=== PATIENT | female | born 1975 | race Caucasian/White ===

== ENCOUNTER 2020-05-21 11:08 | Emergency (ER) | payer OTHER, SELFPAY ==
--- NOTE | 2020-05-21 11:16 | ED.GENADULT ---
HPI - General Adult General Chief complaint: Skin/Abscess/Foreign Body Stated complaint: Bite on arm Time Seen by Provider: 05/21/20 11:16 Source: patient Mode of arrival: ambulatory Limitations: no limitations History of Present Illness HPI narrative: 44-year-old female patient presents to the [facility] with complaints of a bite and some redness on her right arm. Patient states that she noticed the area yesterday morning. Patient states she felt like her arm was on fire. Patient states she had a little bit of itching yesterday but that today feels more like an aching pain. Patient states that the redness to her arm has gotten increasingly bigger. Denies any fevers, body aches or chills. Denies any chest pain or shortness of breath. Patient states she did take some Benadryl for her symptoms. Related Data Allergies Allergy/AdvReac Type Severity Reaction Status Date / Time Sulfa (Sulfonamide Allergy Blister Verified 05/21/20 11:34 Antibiotics) Review of Systems Review of Systems: Narrative: CONSTITUTIONAL: Denies fever, chills, or sweats. EYES: Denies visual changes, redness, or discharge. ENT: Denies rhinorrhea, congestion, sore throat, or otalgia. CARDIOVASCULAR: Denies chest pain, palpitations, or edema. RESPIRATORY: Denies cough or dyspnea. GASTROINTESTINAL: Denies abdominal pain, nausea, vomiting, or diarrhea. GENITOURINARY: Denies dysuria or hematuria. SKIN: Denies rash or itching. Positive redness, swelling and insect bite to right arm since yesterday MUSCULOSKELETAL: Denies back pain, joint pain, or myalgia. NEUROLOGIC: Denies headache, numbness, or weakness. PSYCHIATRIC: Denies anxiety or depression. PMFSH Comments At the time of my signature I agree with nursing past medical history, surgical, social, and family history. There is no relevant family history pertinent to the presenting complaint. Exam Narrative: Exam Narrative: GENERAL: Well-appearing, well-nourished, and in no acute distress. HEAD: Normocephalic, atraumatic. EYES: PERRLA and EOMI. ENT: Nares clear, no rhinorrhea or epistaxis. Mucous membranes moist. NECK: Supple. No lymphadenopathy CHEST: Clear to auscultation. No respiratory distress. HEART: Regular rate and rhythm. No murmur heard. Normal peripheral pulses. ABDOMEN: Soft, nontender, nondistended, normal active bowel sounds. EXTREMITIES: Normal range of motion. No edema. SKIN: Warm, dry, no rash. Patient has a large reddened area to the posterior upper arm on the right side. The reddened area measuring approximately 18 cm in length and 11 cm wide. There is several little raised papules in various areas with some punctate donohue. It is warm to the touch and slightly swollen. No open wounds or drainage. No obvious abscess noted. NEURO: No focal deficits. Alert and oriented x3. Course Vital Signs Vital signs: Vital Signs Temperature 36.6 C 05/21/20 11:17 Pulse Rate 93 05/21/20 11:17 Respiratory Rate 16 05/21/20 11:17 Blood Pressure 134/90 05/21/20 11:17 Pulse Oximetry 98 05/21/20 11:17 Temperature 36.6 C 05/21/20 11:17 Pulse Rate 93 05/21/20 11:17 Respiratory Rate 16 05/21/20 11:17 Blood Pressure 134/90 05/21/20 11:17 Pulse Oximetry 98 05/21/20 11:17 Vital signs reviewed. The patient has been informed that they may have pre-hypertension or Hypertension based on a BP reading in the department. I recommend that the patient call the primary care provider listed on their discharge instructions or a physician of their choice this week to arrange follow up for further evaluation of possible pre-hypertension or Hypertension Medical Decision Making Differential Diagnosis Differential Diagnosis: Differential diagnosis: Abscess, cellulitis, hidradenitis, laceration, puncture wound. Notify patient we will go ahead and put her on some antibiotics and treat her for cellulitis infection. Discussed with her she can also use a warm compress to the area to help
[2020-05-21 11:17] VITALS: BP 134/90; PULSE 93; RESP 16; TEMP 36.6; O2SAT 98
== END 2020-05-21 11:40 | disposition home or self-care (01) ==
PROVIDERS: Emergency Provider Nurse Practitioner Family; PCP Internal Medicine
DX: L03.113 Cellulitis of right upper limb (principal)
CPT/HCPCS: 99213; G0463

== ENCOUNTER 2020-09-03 14:57 | Emergency (ER) | payer OTHER, SELFPAY ==
[2020-09-03 15:04] VITALS: BP 147/106; PULSE 106; RESP 20; TEMP 37.2; O2SAT 97
--- NOTE | 2020-09-03 15:20 | ED.SKABFB ---
HPI - Skin/Abscess/Foreign Bdy General Chief complaint: Skin/Abscess/Foreign Body Stated complaint: Cellulitis Time Seen by Provider: 09/03/20 15:20 Source: patient Mode of arrival: ambulatory Limitations: no limitations History of Present Illness HPI narrative: Alvarado Hartman is a 45 yo female with a PMH of high trigylycerides who comes here with a warm 2 x 3 area on lower left medial forearm and small area at elbow that is mildly raised warm to touch there is also very pruritic. Is concerned it is cellulitis like she had a couple of years ago Patient is allergic to Bactrim Related Data Home Medications Medication Instructions Recorded Confirmed omeprazole 20 mg PO BID 09/03/20 09/03/20 Allergies Allergy/AdvReac Type Severity Reaction Status Date / Time Sulfa (Sulfonamide Allergy Mild Blister Verified 09/03/20 15:18 Antibiotics) Review of Systems Review of Systems: Narrative: CONSTITUTIONAL: Denies fever, chills, sweats. EYES: Denies visual changes, redness, discharge. ENT: Denies rhinorrhea, congestion, sore throat, otalgia. CARDIOVASCULAR: Denies chest pain, palpitations, edema. RESPIRATORY: Denies dyspnea, wheezing, cough GASTROINTESTINAL: Denies abdominal pain, nausea, vomiting, diarrhea. GENITOURINARY: Denies dysuria, hematuria, abnormal discharge SKIN: Denies rash or itching. 2 small areas on left arm one in forearm one on elbow but no raised red itchy mildly warm NEUROLOGIC: Denies numbness, or focal weakness. PSYCHIATRIC: Denies anxiety or depression. [facility] Past Medical History Medical History Elevated cholesterol with elevated triglycerides Family History Family History Other Diabetes mellitus Social History Social History (Updated 09/03/20 @ 15:32 by Rosie Lock CNP) Smoking packs per day: 0.5 Smoking cigarettes per day: 10.0 Smoking status: Current every day smoker Tobacco type: cigarettes Alcohol intake: current Comments At time of signature, I agree with nursing past medical, surgical, social and family history. There is no relevant family history pertinent to the presenting complaint. Blood pressure is again elevated and patient says that has happened in the past but has not followed up with her doctor Exam Narrative: Exam Narrative: GENERAL: This is a well-nourished, well-developed patient, in mild distress. HEAD: normocephalic, atraumatic. EYES: Sclera clear/white. Vision is grossly intact. EARS: External ears normal. Hearing grossly intact. NOSE: External nose normal without nasal discharge, nares without redness, no rhinorrhea. THROAT: Mucous membranes moist, NECK: Neck supple, CARDIOVASCULAR: Regular rate and rhythm without murmurs, gallops, or rubs. RESPIRATORY: Clear to auscultation. Breath sounds equal bilaterally. No wheezes, rales, or rhonchi. GASTROINTESTINAL: Abdomen soft, SKIN: warm, intact with 2 lesions to left forearm 3 x 2 on forearm and elbow, mildly raised. mild warmth;. Pruritic NEURO: awake, alert, and oriented to person, place and time. There were no obvious focal neurologic abnormalities. Steady gait EXTREMITIES: Normal range of motion. BACK: Nontender without deformity Course Course Emergency Course: Patient states the last couple days he has developed these red spots that have been much larger in 1 day-concerned that his cellulitis Patient started on Keflex and Benadryl discussed with patient follow-up with primary care physician for both high blood pressure and acknowledged high triglycerides Vital Signs Vital signs: Vital Signs Temperature 98.9 F 09/03/20 15:04 Pulse Rate 106 H 09/03/20 15:04 Respiratory Rate 20 09/03/20 15:04 Blood Pressure 147/106 H 09/03/20 15:04 Pulse Oximetry 97 09/03/20 15:04 Temperature 98.9 F 09/03/20 15:04 Pulse Rate 106 H 09/03/20 15:04 Respiratory Rate 20 12
[2020-09-03 15:45] VITALS: BP 144/100
== END 2020-09-03 15:45 | disposition home or self-care (01) ==
PROVIDERS: Emergency Provider Nurse Practitioner; PCP Internal Medicine
DX: L03.114 Cellulitis of left upper limb (principal); F17.210 Nicotine dependence, cigarettes, uncomplicated; E78.2 Mixed hyperlipidemia
CPT/HCPCS: 99213; G0463

== ENCOUNTER 2022-02-02 14:42 | Emergency (ER) | payer OTHER, SELFPAY ==
[2022-02-02 15:00] VITALS: BP 122/88; PULSE 95; RESP 20; TEMP 36.8; O2SAT 97
--- NOTE | 2022-02-02 15:33 | ED.URI ---
HPI - URI/Sore Throat General Chief Complaint: Upper Respiratory Infection Stated Complaint: Chest Congestion/Cough Time Seen by Provider: 02/02/22 15:34 Source: patient Mode of arrival: ambulatory Limitations: no limitations History of Present Illness HPI Narrative: 46 year old female who presents to [facility] care with cough, nasal drainage some episodes of wheezing since . Patient reports that she has been taking Mucinex for her symptoms and has used her inhaler. Patient reports history of chronic bronchitis, did have COVID in September of 2021. MD elicited complaint: cough, rhinorrhea and nasal congestion Able to tolerate fluids by mouth: Yes Treatments prior to arrival: other (mucinex) Related Data Home Medications Medication Instructions Recorded Confirmed omeprazole 20 mg capsule,delayed 20 mg PO BID 09/03/20 02/02/22 release Allergies Allergy/AdvReac Type Severity Reaction Status Date / Time Sulfa (Sulfonamide Allergy Mild Blister Verified 02/02/22 15:32 Antibiotics) Review of Systems Review of Systems: CONSTITUTIONAL: Denies fever, chills, or sweats. EYES: Denies visual changes, redness, or discharge. ENT: Positive for rhinorrhea, congestion,no sore throat, or otalgia.reports did have thick green nasal congestion and now is white. CARDIOVASCULAR: Denies chest pain, palpitations, or edema. RESPIRATORY: Positive for harsh cough or dyspnea. GASTROINTESTINAL: Denies abdominal pain, nausea, vomiting, or diarrhea. GENITOURINARY: Denies dysuria or hematuria. SKIN: Denies rash or itching. MUSCULOSKELETAL: Denies back pain, joint pain, or myalgia. NEUROLOGIC: Denies headache, numbness, or weakness. PSYCHIATRIC: Denies anxiety or depression. [facility] Past Medical History Medical History (Updated 02/03/22 @ 20:44 by Nikki Campbell NP) Chronic bronchitis Elevated cholesterol with elevated triglycerides GERD (gastroesophageal reflux disease) Surgical History Surgical History (Updated 02/02/22 @ 16:10 by Nikki Campbell NP) History of bladder repair surgery History of tonsillectomy Hx of appendectomy Hx of removal of ovary Family History Family History Other Diabetes mellitus Social History Social History (Updated 02/02/22 @ 16:06 by Nikki Campbell NP) Smoking packs per day: 0.25 Smoking cigarettes per day: 5.0 Smoking status: Current every day smoker Tobacco type: cigarettes Alcohol intake: current Alcohol use details: social Substance use type: does not use Living arrangements: with family Gender identity (if verbalized by the patient): Female Comments At time of signature, agree with nursing past medical, surgical, social and family history. There is no relevant family history pertinent to the presenting complaint Exam Narrative: GENERAL: Well-appearing, well-nourished, and in no acute distress. HEAD: Normocephalic, atraumatic. EYES: PERRLA and EOMI. ENT: Nares red with clear rhinorrhea or epistaxis. Mucous membranes moist.TM's normal with good light reflex, throat with some redness no lesions or exudates, no tonsils present NECK: Supple.no lymphadenopathy CHEST: Decreased with occasional wheeze to auscultation. No respiratory distress.harsh productive cough at times HEART: Regular rate and rhythm. No murmur heard. Normal peripheral pulses. ABDOMEN: Soft, nontender, nondistended, normal active bowel sounds. EXTREMITIES: Normal range of motion. No edema. SKIN: Warm, dry, no rash. NEURO: No focal deficits. Alert and oriented x3. Course Course Level of Care: Express Care Visit Vital Signs Vital signs: Vital Signs Temperature 36.8 C 02/02/22 15:00 Pulse Rate 95 02/02/22 15:00 Respiratory Rate 20 02/02/22 15:00 Blood Pressure 122/88 02/02/22 15:00 Pulse Oximetry 97 02/02/22 15:00 Oxygen Delivery Room Air 02/02/22 15:00 Temperature 36.8 C 02/02/22 15:00 Pulse Rate 95
== END 2022-02-02 15:59 | disposition home or self-care (01) ==
PROVIDERS: Emergency Provider Registered Nurse; PCP Internal Medicine
DX: J40 Bronchitis, not specified as acute or chronic (principal); J06.9 Acute upper respiratory infection, unspecified; F17.210 Nicotine dependence, cigarettes, uncomplicated; K21.9 Gastro-esophageal reflux disease without esophagitis; E78.2 Mixed hyperlipidemia
CPT/HCPCS: 99213; G0463

== ENCOUNTER 2023-11-08 09:52 | Emergency (ER) | payer OTHER, SELFPAY ==
[2023-11-08 10:00] VITALS: BP 140/93; PULSE 129; RESP 20; TEMP 37.3; O2SAT 96
--- NOTE | 2023-11-08 10:21 | ED.URI ---
HPI - URI/Sore Throat General Chief Complaint: Upper Respiratory Infection Stated Complaint: Congestion/Sore Throat/Nausea Time Seen by Provider: 11/08/23 10:21 History of Present Illness HPI Narrative: 48-year-old female presented for complaint of sore throat, nausea, and nasal congestion for about 3 hours prior to arrival. States she started with mild throat pain last night, and had painful swallow this morning. Now with 'tender skin.' Took Sudafed this morning. States this morning she had a f/u for hiatal hernia surgery. Hx tonsillectomy. Related Data Home Medications Medication Instructions Recorded Confirmed docusate sodium 100 mg capsule See Rx Instructions .Route .COMPLEX 11/08/23 11/08/23 Allergies Allergy/AdvReac Type Severity Reaction Status Date / Time Sulfa (Sulfonamide Allergy Mild Blister Verified 11/08/23 10:18 Antibiotics) Review of Systems Review of Systems: CONSTITUTIONAL:reports body aches, fever, chills, or sweats. EYES: Denies visual changes, redness, or discharge. ENT: reports rhinorrhea, congestion, sore throat CARDIOVASCULAR: Denies chest pain, palpitations, or edema. RESPIRATORY: Denies dyspnea. GASTROINTESTINAL: Denies abdominal pain, vomiting, or diarrhea. SKIN: Denies rash, itching, or wounds. MUSCULOSKELETAL: Denies back pain, joint pain NEUROLOGIC: Denies headache PMFSH Past Medical History Medical History Chronic bronchitis Elevated cholesterol with elevated triglycerides GERD (gastroesophageal reflux disease) Surgical History Surgical History History of bladder repair surgery History of tonsillectomy Hx of appendectomy Hx of removal of ovary Family History Family History Other Diabetes mellitus Social History Social History Smoking packs per day: 0.25 Smoking cigarettes per day: 5.0 Smoking status: Current every day smoker Tobacco type: cigarettes Alcohol intake: current Alcohol use details: social Substance use type: does not use Living arrangements: with family Gender identity (if verbalized by the patient): Female Exam Narrative: GENERAL: mildly Ill-appearing, no acute distress. EYES: conjunctivae clear ENT: Mucous membranes moist. Nasal congestion. TMs pearly troy with normal light reflex bilaterally; no tragal tenderness. Oropharynx erythematous, uvula minimally swollen without lesions. Tonsils absent. No drooling, no hoarseness, no trismus, uvula midline. No tripod positioning, hot potato voice, or soft palate swelling. NECK: Supple. No lymphadenopathy CHEST: Clear to auscultation, breath sounds equal. No respiratory distress, speaks in full sentences. HEART: Regular rate and rhythm. No murmur heard. SKIN: Warm, dry, no rash. NEURO: Alert and oriented x3. Course Course Emergency Course: Patient is aware of diagnosis, understands and agrees to treatment plan. Anticipatory guidance given. Patient agrees to follow-up as directed and is aware of reasons to seek care at the emergency department. Portions of this record may have been created with voice recognition software Level of Care: Express Care Visit Vital Signs Vital signs: Vital Signs Temperature 99.2 F 11/08/23 10:00 Pulse Rate 129 H 11/08/23 10:00 Respiratory Rate 20 11/08/23 10:00 Blood Pressure 140/93 H 11/08/23 10:00 Pulse Oximetry 96 11/08/23 10:00 Oxygen Delivery Room Air 11/08/23 10:00 Temperature 99.2 F 11/08/23 10:00 Pulse Rate 129 H 11/08/23 10:00 Respiratory Rate 20 11/08/23 10:00 Blood Pressure 140/93 H 11/08/23 10:00 Pulse Oximetry 96 11/08/23 10:00 Oxygen Delivery Room Air 11/08/23 10:00 MDM - URI/Sore Throat MDM Narrative Medical decision making narrative: Neg flu, c
== END 2023-11-08 10:35 | disposition home or self-care (01) ==
PROVIDERS: Emergency Provider Nurse Practitioner Family; PCP Family Medicine
DX: J02.9 Acute pharyngitis, unspecified (principal); Z20.822 Contact with and (suspected) exposure to COVID-19; F17.210 Nicotine dependence, cigarettes, uncomplicated; E78.2 Mixed hyperlipidemia; K21.9 Gastro-esophageal reflux disease without esophagitis
CPT/HCPCS: 87081; 87426; 87804; 87880; 99213; G0463